=== PATIENT | female | born 1985 | race Caucasian/White ===

== ENCOUNTER 2018-04-13 14:26 | Emergency (ER) | payer BC, OTHER ==
--- NOTE | 2018-04-13 15:03 | EDPHY ---
General Time Seen by Provider: 04/13/18 14:57 Narrative: CHIEF COMPLAINT: Finger laceration HISTORY OF PRESENT ILLNESS: Patient presents with complaints of finger laceration. She states that she was cutting something with scissors approximately 30 min ago when she accidentally cut the tip of the left index finger on the pad. Moderate bleeding. Minimal pain. No difficulty been or straightening the finger. No injury elsewhere. No broken glass or foreign body present. No bony tenderness. Tetanus is up-to- date less than 6 weeks ago. She has no other associated complaints or modifying factors Right-hand dominant TIME OF INJURY: Less than 1 hr prior to arrival TETANUS STATUS: Less than 6 weeks ago MEDICAL/SURGICAL/SOCIAL HISTORY: Uncomplicated. Nonsmoker. REVIEW OF SYSTEMS: Ten systems reviewed and are negative unless otherwise noted in the HPI EXAMINATION General Appearance: Alert, no distress Head: normocephalic, atraumatic Cardiovascular: Pulses normal throughout. Brisk cap refill fingers left hand. 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 2 cm laceration of the left index finger, volar side. No involvement of the nail. No foreign body. No pulsatile bleeding. Extremities: Minimal tenderness of the left index finger laceration. Full extension and flexion of the index finger including superficialis and profundus without deficit. DIFFERENTIAL DIAGNOSES: Including but not limited to laceration, laceration with tendon injury, laceration foreign body, laceration with complication MDM: 3:05 p.m. Uncomplicated laceration of the left index finger without any evidence of tendon injury. Digital block administered. We will irrigate and closed the wound. No indication for x-ray. Neuro intact pre digital block with full extension of flexion of the finger including superficialis and profundus. 3:45 p.m. Laceration has been repaired without difficulty. Excellent approximation. No difficulty with range of motion postprocedure. She will be placed in Adaptic and tube gauze dressing. We discussed wound care. We discussed ED precautions. We discussed returning here in 7 days for suture removal. She is comfortable this plan. She is discharged home stable condition. PROCEDURE: Digital Block Indication: Finger laceration Consent: Verbal Location: Left index Anesthesia: Lidocaine 1% plain, 0.25% Marcaine plain, 5mL Description: Base of the finger was prepped. The above was infused without difficulty. Tolerated well. Good anesthesia. Complications: None PROCEDURE: Laceration repair Consent: Verbal Location: Left index Length of repair: 2 cm Complexity: Simple Layer involvement: Single Anesthesia: Digital Irrigation: Extensive Debridement: None Procedure description: Following good anesthesia, the wound was copiously irrigated. Wound bed was explored with a sterile glove, and there is no foreign body noted. No obvious tendon injury. Wound borders were approximated well with good hemostasis. Tolerated well without complication. Suture/Staple material: 5-0 Prolene, force Wound care: Routine as discussed Suture/Staple removal: 7-10 Days SUPERVISION: This patient was independently evaluated without direct involvement of or examination by the attending physician. - History Smoking Status: Never smoked - Objective Vital Signs: Initial Vital Signs Temperature (C) 96.8 F 04/13/18 14:32 Heart Rate 78 04/13/18 14:32 Respiratory Rate 16 04/13/18 14:32 O2 Sat (%) 96 04/13/18 14:32 O2 Delivery Mode Room Air Allergies/Adverse Reactions: No Known Allergies Allergy (Unverified 04/13/18 14:32) Home Medications: Medication Instructions Recorded NK [No Known Home Meds] 04/13/18 Departure - Departure Disposition: Home, Routine, Self-Care Clinical Impression: Laceration of left index finger Qualifiers: Encounter type: initial encounter Damage to nail status: without damage Foreign body presence: without foreign body Qualified Code(s): S61.211A - Laceration without foreign body of left index finger without damage to nail, initial encounter Condition: Good Instructions: Care For Your Stitches (ED), Laceration (ED) Additional Instructions: 1. Thin layer of bacitracin once daily for the next 2 days 2. Keep the wound covered while showering for the next 3 days 3. Daily wound care as discussed 4. Return here for suture removal in 7-10 days 5. Return here for signs of infection as discussed including warmth, redness, fever, drainage from the site 6. return here for increasing pain surrounding the laceration 7. Do not submerge the wound in any water, hot tub, swimming pool until sutures removed Referrals: Aliyah Polk MD [Medical Doctor] - As per Instructions Physician,Emergency DeptMD [Medical Doctor] - As per Instructions (7-10 days for suture removal)
== END 2018-04-13 16:12 | disposition home or self-care (01) ==
PROC: 0HQGXZZ Repair Left Hand Skin, External Approach (ICD-10-PCS; principal; 2018-04-13)
PROC: 3E0T3BZ Introduction of Anesthetic Agent into Peripheral Nerves and Plexi, Percutaneous Approach (ICD-10-PCS; principal; 2018-04-13)
DX: S61.211A Laceration without foreign body of left index finger without damage to nail, initial encounter (principal); W27.2XXA Contact with scissors, initial encounter; Y92.9 Unspecified place or not applicable